=== PATIENT | female | born 1975 | race Caucasian/White ===

== ENCOUNTER → 2020-11-22 11:22 | Outpatient (BNVA) | payer MEDICAID, SELFPAY | PROVIDERS: Visit Provider Nurse Practitioner | DX: K21.9 Gastro-esophageal reflux disease without esophagitis (principal); R10.13 Epigastric pain; R19.5 Other fecal abnormalities | CPT/HCPCS: 99202 ==

== ENCOUNTER 2021-04-22 15:13 | Outpatient (REF) | payer MEDICAID, SELFPAY ==
[2021-04-22 17:10] LABS: Basophils Percent Auto 0.3 % (0-2); Eosinophils Absolute Auto 0.1 X10*3/uL (0.0-0.4); Eosinophils Percent Auto 1.2 % (0-4); Hematocrit 42.9 % (37.0-47.0); Hemoglobin 14.3 g/dl (12.0-16.0); Imm Gran Abs Auto 0.03 X10*3/uL (0.00-0.03); Imm Gran Pct Auto 0.3 % (0.0-0.4); Lymphocytes Absolute Auto 3.6 X10*3/uL (1.2-4.9); Lymphocytes Percent Auto 35.7 % (20-40); MANUAL DIFF FLAG NO; Mean Corpuscular HGB Conc 33.3 g/dl (31.0-35.0); Mean Corpuscular Hemoglobin 31.1 pg (27.0-33.0); Mean Corpuscular Volume 93.3 fL (80.0-98.0); Mean Platelet Volume 11.5 fL (9.4-12.3); Monocytes Absolute Auto 0.5 X10*3/uL (0.1-1.2); Monocytes Percent Auto 5.3 % (2-11); Neutrophils Absolute Auto 5.8 x10*3/uL (2.0-8.3); Neutrophils Percent Auto 57.2 % (45-73); Platelet Count 280 X10*3/uL (160-400); Red Cell Distribution Width 12.7 % (11.0-16.0); White Blood Count 10.2 X10*3/uL (4.8-10.8)
[2021-04-22 17:36] LABS: Alanine Aminotransferase 35 U/L (0-31); Albumin Level 4.3 g/dL (3.5-5.0); Alkaline Phosphatase 97 U/L (39-117); Anion Gap 12 (12-20); Aspartate Amino Transferase 24 U/L (5-31); Bilirubin Total 0.4 mg/dL (0.0-1.0); Blood Urea Nitrogen 8 mg/dL (9-16); C Reactive Protein 0.31 mg/dL (< or = 0.50); Calcium 9.6 mg/dL (8.4-10.2); Carbon Dioxide 28 mmol/L (22-29); Chloride 105 mmol/L (96-108); Estimated Glomerular Filt Rate > 60; Glucose Random 82 mg/dL (60-115); Potassium 4.5 mmol/L (3.3-5.1); Sodium 140 mmol/L (135-145); Total Protein 6.9 g/dL (6.5-8.0)
[2021-04-22 17:56] LABS: Ferritin 115 ng/mL (10-250)
[2021-04-24 14:47] LABS: Anti Nuclear Antibody Screen NEGATIVE (NEGATIVE)
[2021-04-25 12:52] LABS: Mitochondrial Antibodies NEGATIVE (NEGATIVE)
[2021-04-25 13:56] LABS: Alpha Fetoprotein 2.6 ng/mL
[2021-04-26 13:36] LABS: Transglutaminase Ab IgG <1.0 U/mL; Transglutaminase IgA <1.0 U/mL
[2021-04-26 14:05] LABS: Smooth Muscle Antibody <20 U (<20)
== END 2021-04-22 15:14 | disposition home or self-care (01) ==
LOC: HO.LAB 15:13
PROVIDERS: PCP Internal Medicine; Referring Provider Internal Medicine; Visit Provider Nurse Practitioner
DX: K21.9 Gastro-esophageal reflux disease without esophagitis (principal); K76.0 Fatty (change of) liver, not elsewhere classified; R19.5 Other fecal abnormalities
CPT/HCPCS: 36415; 80053; 82105; 82728; 84443; 85025; 86015; 86038; 86039; 86140; 86255; 86256; 86364; 99212

== ENCOUNTER 2024-08-30 10:32 | Outpatient (REF) | payer OTHER, SELFPAY ==
[2024-08-30 10:52] LABS: MANUAL DIFF FLAG NO
[2024-08-30 10:59] LABS: Hematocrit 39.9 % (37.0-47.0); Hemoglobin 13.6 g/dl (12.0-16.0); Imm Gran Abs Auto 0.03 X10*3/uL (0.00-0.03); Imm Gran Pct Auto 0.4 % (0.0-0.4); Lymphocytes Absolute Auto 2.6 X10*3/uL (1.2-4.9); Mean Corpuscular HGB Conc 34.1 g/dl (31.0-35.0); Mean Corpuscular Hemoglobin 30.4 pg (27.0-33.0); Mean Corpuscular Volume 89.3 fL (80.0-98.0); NRBC Abs Auto 0.000 X10*3/uL (0.0-0.012); NRBC Pct Auto 0.0 /100WBC (0.0-0.2); Platelet Count 260 X10*3/uL (160-400); Red Blood Count 4.47 X10*6/uL (4.20-5.50); White Blood Count 7.9 X10*3/uL (4.8-10.8)
[2024-08-30 11:05] LABS: Appearance Urine Clear; Glucose Urine UA Negative (Negative); PH 5.5 (5.0-9.0); Specific Gravity - Urine 1.025 (1.005-1.025); UMIC TRIGGER UA YES
[2024-08-30 11:38] LABS: Alanine Aminotransferase 49 U/L (0-31); Albumin Level 4.1 g/dL (3.5-5.0); Alkaline Phosphatase 98 U/L (39-117); Anion Gap 11 (12-20); Aspartate Amino Transferase 31 U/L (5-31); Blood Urea Nitrogen 17 mg/dL (9-16); Calcium 8.9 mg/dL (8.4-10.2); Carbon Dioxide 27 mmol/L (22-29); Chloride 107 mmol/L (96-108); Cholesterol 154 mg/dL (<200); Estimated Glomerular Filt Rate > 60; HDL Cholesterol 46 mg/dL (>40); Potassium 4.0 mmol/L (3.3-5.1); Sodium 141 mmol/L (135-145); Total Protein 6.6 g/dL (6.5-8.0); Triglycerides 95 mg/dL (<150)
[2024-08-30 11:50] LABS: ~HepC Num1 0.12 S/CO (0.00-0.79); ~Hepatitis C Antibody Nonreactive (Nonreactive)
[2024-08-30 12:03] LABS: Folate 5.8 ng/mL (> or = 4.0); Vitamin B12 817 pg/mL (200-900)
[2024-09-04 10:03] LABS: Metanephrine, Free 37 pg/mL (<=57); Normetanephrines, Free 62 pg/mL (<=148); Total Metanephrine, Free 99 pg/mL (<=205)
[2024-09-05 18:17] LABS: Plasma Renin Activity 1.21 ng/mL/h (0.25-5.82)
== END 2024-08-30 10:33 | disposition home or self-care (01) ==
LOC: HO.LAB 10:32
PROVIDERS: Nurse Practitioner; PCP Pediatrics; Visit Provider Internal Medicine
DX: I10 Essential (primary) hypertension (principal); R60.1 Generalized edema; R20.8 Other disturbances of skin sensation
CPT/HCPCS: 36415; 80053; 80061; 81001; 82088; 82248; 82607; 82746; 83835; 84443; 85025; 85652; 86140; 86803

== ENCOUNTER 2024-09-26 14:51 | Outpatient (REF) | payer OTHER, SELFPAY ==
--- NOTE | 2024-09-26 | PFT_ITS ---
Flows: FEV1: 60 % of predicted at 1.66 L FVC: 83 % of predicted at 2.83 L FEV1/FVC: 59 % Bronchodilator response: Present Volumes: Total lung capacity: 100 % of predicted at 5.04 L Residual volume: 170 % of predicted at 2.34 L Slow vital capacity: 74 % of predicted at 2.70 L Expiratory reserve volume: 28 % of predicted at 0.29 L Diffusion capacity: Normal Impression: Moderate obstructive ventilatory defect with positive bronchodilator response. Increased residual volume suggests air trapping. Decreased expiratory reserve volume suggests extrathoracic restriction likely secondary to abdominal obesity. MTDD
--- OUTSIDE RECORDS SUMMARY | 2024-09-26 14:54 | XMS_ITS | Encounter Summary ---
Author Organization [employer] Address [address] [address] Care Team Providers Care Studio Couch Frame Builder Name Role Phone Geovanni Montes MD Primary Care Provider [phone] Reason for Visit * Reason Onset Date Comments Med Refill 07/03/2024 Encounter Details Date Type Department Care Team (Late st Contact Info) Description 07/03/[address] [facility] MEDICINE [address] [place] [address] Geovanni Montes MD [address] [place], [place] [phone] Med Refill Social History Tobacco Use Types Packs/Day Years Used Date Smoking Tobacco: Every Day Cigarettes Passive Smoke Exposure: Current Smokeless Tobacco: Former Alcohol Answer Date Recorded How often do you have a drink containing alcohol ? 2 05/14/2024 How many drinks containing a lcohol do you have on a typical day when you are drinking? 1 05/14/2024 How often do you have six or more drinks on one occasion? 1 05/14/2024 Depression Answer Date Recorded Patient Health Questionnaire-9 Score 3 05/14/2024 Patient Health Questionnaire-9 Score 3 05/14/2024 Last PHQ-9: Questionnaire Data Not on file 0 05/14/2024 Housing Stability Answer Date Recorded What is your housing situation today? I have lisa liriano 05/14/[address] you li ve. Do you have problems with any of the following? None of the above 05/14/2024 Food Insecurity Answer Date Recorded Within the past 12 months, y ou worried that your food would run out before you got money to buy more: Never True 2024 Within the past 12 months,th e food you bought just didn't last and you didn't have enough money to get more: Sometimes True 05/14/2024 Transportation Answer Date Recorded In the past 12 months, has l ack of transportation kept you from medical appts, meetings, work or from getting things needed for daily living? No 05/14/2024 Utilities Answer Date Recorded In the past 12 months, has t he electric, gas, oil or water company threatened to shut off services in your home? Yes 05/14/2024 Depression Answer Date Recorded Patient Health Questionnaire-2 Score 1 05/14/2024 Internet Access Answer Date Recorded Internet Access Q1 Yes 05/14/2024 Internet Access Q2 Not on file 05/14/2024 Comments Unknown Sex and Gender Information Value Date Recorded Sex Assigned at Female 12/19/2021 10:18 AM EDT Legal Sex Female 10:18 AM EDT Gender Identity Female 12/19/2021 10:18 AM EDT Sexual Orientation Straight 12/19/2021 10 :18 AM EDT documented as of this encounter Miscellaneous Notes * Telephone Encounter - Mago Almeida LPN - 07/03/2024 10:04 AM EDT Please review request below * Telephone Encounter - Harleen Blandon - 07/03/2024 9:54 AM EDT TC from pt requesting medication refill. Medications needing refill : - fluconazole (Diflucan) 150 MG [id number] [place] [address] [facility] Pt stated that she wants the medication for 3 days instated documented in this encounter Plan of Treatment Upcoming Encounters Date Type Department Care Team ([facility] st Contact Info) Description 11/18/2024 2:00 PM EDT Office Visit [facility] MED & PEDS [address] [place] [address] Geovanni Montes MD [address] [place] [address] documented as of this encounter Visit Diagnoses Not on filedocumented in this encounter Additional Health Concerns Assessment Noted Time PHQ-9 Depression Total Score: 3 05/15/19 25 3:43 PM EDT documented as of this encounter Care Teams Studio Couch Frame Builder Relationship Specialty Start Date End Date Geovanni Montes MD [address] [place] [address] PCP - General Internal Medicine 07/30/20 documented as of this encounter
--- OUTSIDE RECORDS SUMMARY | 2024-09-26 14:54 | XMS_ITS | Patient Health Record ---
Author Organization [facility] Address [address] [place] [address] Care Team Providers Care Self Contained Behavior Unit Teacher Name Role Phone Geovanni Montes Primary Care Provider Unavail able Samira Copeland Unavailable [phone] Reason For Referral No Information Encounters Encounter Location Date Provider Diagnosis [facility] [address] [place] [address] 05/21/2024 Samira Copeland Plan Of Treatment No Information Insurance Providers Payer Name Payer Address Payer Phone Subscriber Number Group Number Insured Name Patient Relationship to Insured Coverage Start Date Coverage End Date [facility] [id number] [address] [address] [place] [id number] Daija Resendiz Self - patient is the insured
--- OUTSIDE RECORDS SUMMARY | 2024-09-26 14:54 | XMS_ITS | Encounter Summary ---
Author Organization [facility] Address [address] [place] [address] Phone Care Team Providers Care Seismic Survey Assistant Name Role Phone Geovanni Montes MD Primary Care Provider [phone] Encounter Details Date Type Department Care Team (Late st Contact Info) Description 11/08/2021 Documentation Only [facility] [address] [place] [address] Carlos Moon DO [address] [facility] [place] [address] Social History Tobacco Use Types Packs/Day Years Used Date Smoking Tobacco: Every Day Alcohol Use Standard Drinks/Week Comments Yes 0 (1 standard drink = 0.6 oz pure alcohol) Alcoholic Drinks/day: Occasional social drink Comments Unknown Sex and Gender Information Value Date Recorded Sex Assigned at Not on file Legal Sex Female 4:36 PM EST Gender Identity Not on file Sexual Orientation Not on file documented as of this encounter Plan of Treatment Upcoming Encounters Date Type Department Care Team (Late st Contact Info) Description 11/19/2024 3:00 PM EDT Office [facility] [address] [place] [address] Carlos Moon DO [address] [facility] [place] [address] documented as of this encounter Visit Diagnoses Not on filedocumented in this encounter Care Teams Seismic Survey Assistant Relationship Specialty Start Date End Date Geovanni Montes MD [address] [place] [id number] PCP - General Internal Medicine 08/15/23 documented as of this encounter
--- OUTSIDE RECORDS SUMMARY | 2024-09-26 14:54 | XMS_ITS | Clinical Summary ---
Author Organization [facility] Address [address] [place] [address] Phone Care Team Providers Care Preschool Program Director Name Role Phone Gabbi Harper MD Primary Care Provider [phone] Allergies Active Allergy Reactions Criticality Noted Date Comments Ibuprofen Diarrhea,Other,Pain,Unknown 08/16/19 12 Nickel 08/27/2024 Penicillins Rash Low 08/16/2011 Medications cetirizine (ZyrTEC) 10 mg tablet Take 1 tablet (10 mg total) by mouth daily. 06/23/2024 Active budesonide-form oteroL (SYMBICORT) 160-4.5 mcg/actuation inhaler Inhale 2 puffs by mouth. 07/03/2017 Active fluconazole (DIFLUCAN) 150 mg tablet 150 MG ONCE A WEEK X 2 WEEKS 07/03/2024 Active famotidine (PEPCID) 20 mg tablet take 1 tablet by oral route 2 times a day 01/06/2022 Active hydrOXYzine HCL (ATARAX) 25 mg tablet Take 1 tablet (25 mg total) by mouth. 09/10/2020 Active tiotropium (SPIRIVA) 18 mcg per inhalation capsule Place 1 capsule (18 mcg total) into inhaler and inhale daily. 05/14/2024 Active valsartan (DIOVAN) 320 mg tablet Take 1 tablet (320 mg total) by mouth 1 (one) time each day. 07/23/2024 Active valsartan-hydro CHLOROthiazide (DIOVAN-HCT) 320-12.5 mg per tablet Take 1 tablet by mouth 1 (one) time each day. 05/14/2024 Active Active Problems Problem Noted Date Diagnosed Date Flank pain 08/26/2024 Generalized anxiety disorder 05/14/2024 Smoker 05/04/2023 Gastroesophageal reflux disease without esophagi tis 07/11/2018 Restless legs 07/11/2018 Hypertension 04/25/2017 Iron deficiency anemia 04/25/2017 Renal calculi 04/25/2017 Disordered sleep 09/21/2016 Asthma 07/21/2016 Encounters Date Type Department Care Team Description 08/27/2024 8:30 AM EDT Office Visit Gastroenterology - [address] [phone] Sonia Amin PA Colon cancer screening (Primary Dx); Oropharyngeal dysphagia; Irritable bowel syndrome with constipation 08/27/2024 Telephone Gastroenterology - [address] [phone] Nabil Alcantar MD from Last 3 Months Medical History Medical History Date Comments Ectopic kidney Family History Medical History Relation Name Comments Colon cancer Father's Brother Colonic polyp Mother Relation Name Status Comments Father's Brother Mother Social History Tobacco Use Types Packs/Day Years Used Date Smoking Tobacco: Every Day Cigarettes Smokeless Tobacco: Current Tobacco Cessation:Ready to Q uit: Not Asked; Counseling Given: Not Answered Alcohol Use Standard Drinks/Week Comments Yes 0 (1 standard drink = 0.6 oz pur e alcohol) 2x a month Comments Unknown Sex and Gender Information Value Date Recorded Sex Assigned at Not on file Legal Sex Female 5:36 AM EST Gender Identity Not on file Sexual Orientation Not on file Obstetrics History Last Filed Vital Signs Vital Sign Reading Time Taken Comments Blood Pressure - - Pulse - - Temperature - - Respiratory Rate - - Oxygen Saturation - - Inhaled Oxygen Concentration - - Weight 89.4 kg (197 lb) 08/27/2024 8:20 AM EDT Height 160 cm (5' 3 ) 08/27/2024 8:20 AM EDT Body Mass Index 34.9 08/27/2024 8:20 AM EDT Plan of Treatment Upcoming Encounters Date Type Department Care Team (Late st Contact Info) Description 11/12/2024 10:30 AM EDT Appointment [facility] Endoscopy [address] [place] [phone] Nabil Alcantar MD [address] [facility] [address] [place] [address] Health Maintenance Due Date Last Done Comments Breast Cancer Screening 1977 Hepatitis B Vaccines (1 of 3 - 19+ 3-dose series) 1996 Pneumococcal Vaccine: Pediatrics (0 to 5 Years) and At-Risk Patients (6 to 49 Years) (1 of 2 - PCV) 1996 Cervical Cancer Screening: P ap Smear 1998 COVID-19 Vaccine (3 - 2023-2 5 season) 2023 04/25/2021, 03/01/2021 Depression Screening 02/20/2024 Cholesterol Screening (Lipid Panel) 07/26/2024 Colorectal Cancer Screening: Colonoscopy 07/26/2024 HIV Screening 07/26/2024 Hepatitis C Screening 07/26/2024 Hypertension/CHF/CAD Annual BMP Blood Test 07/26/2024 Social Influencers of Health Screening 07/26/2024 Influenza Vaccine (#1) 2024 DTaP,Tdap,and Td Vaccines (2 - Td or Tdap) 03/03/2029 03/03/2019 HIB Vaccines Aged Out No longer eligi ble based on patient's age to complete this topic HPV Vaccines Aged Out No longer eligi ble based on patient's age to complete this topic Hepatitis A Vaccines Aged Out No long er eligible based on patient's age to complete this topic IPV Vaccines Aged Out No longer eligi ble based on patient's age to complete this topic MMR Vaccines Aged Out No longer eligi ble based on patient's age to complete this topic Meningococcal ACWY Vaccine Aged Out N o longer eligible based on patient's age to complete this topic Meningococcal B Vaccine Aged Out No l onger eligible based on patient's age to complete this topic RSV Immunization Patients Under 20 months Aged Out No longer eligible b ased on patient's age to complete this topic Varicella Vaccines Aged Out No longer eligible based on patient's age to complete this topic Insurance [facility] [place] [address] Care Teams Preschool Program Director Relationship Specialty Start Date End Date Gabbi Harper MD [address] [place] [address] PCP - General Internal Medicine 03/02/17
[2024-09-26 15:33] VITALS: PULSE 92; O2SAT 98
== END 2024-09-26 14:52 | disposition home or self-care (01) ==
LOC: HO.RESP 14:51
PROVIDERS: PCP Pediatrics; Visit Provider Internal Medicine
DX: R06.02 Shortness of breath (principal); F17.200 Nicotine dependence, unspecified, uncomplicated
CPT/HCPCS: 94010; 94640; 94727; 94729

== ENCOUNTER → 2024-09-26 14:59 | Outpatient (BNV) | payer OTHER, SELFPAY | PROVIDERS: PCP Pediatrics; Visit Provider Internal Medicine Pulmonary Disease | DX: J45.909 Unspecified asthma, uncomplicated (principal) | CPT/HCPCS: 94060; 94727; 94729 ==